=== PATIENT | male | born 1995 | race Caucasian/White ===

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

== ENCOUNTER 2019-07-13 19:24 | Emergency (ER) | payer OTHER ==
[~2019-07-13] VITALS: Ht 180.3 cm; Wt 75.0 kg
[2019-07-13] MEDS ORDERED: methylPREDNISolone SOD SUCC PF 125 MG/2 ML VIAL. IM ONE (19:45)
[2019-07-13] MEDS ORDERED: diphenhydrAMINE 50 MG/ML VIAL IM ONE (19:45)
--- NOTE | 2019-07-13 19:51 | PHYS DOC ---
Past Medical History Past Medical History: No Pertinent History, Anxiety Past Surgical History: No Surgical History Smoking Status: Never Smoker Alcohol Use: Occasionally Drug Use: None Adult General Chief Complaint Chief Complaint: ALLERGIC REACTION [facility] HPI Patient is a 24 year old male who presents with complaint of allergic reaction to azithromycin. Patient had been prescribed azithromycin yesterday and afterwards had developed a rash and swelling around his lips. Patient was seen for that earlier and had been given Benadryl and a Medrol Dosepak. Patient s tates that after initial doses, symptoms had improved with lip swelling decreasing but rash and lip swelling had returned. Patient did take another Benadryl about 30 minutes prior to arrival and states that it is just now starting to help with symptoms. He denies any shortness of breath or difficulty swallowing.[] Review of Systems Review of Systems Constitutional: Denies fever or chills [] Respiratory: Denies cough or shortness of breath [] Cardiovascular: No additional information not addressed in HPI [] Integument: Complains of urticarial rash[] Neurologic: Denies headache, focal weakness or sensory changes [] Current Medications Current Medications Current Medications Medications (Trade) Dose Ordered Sig/Enmanuel Start Time Stop Time Status Last Admin Dose Admin Diphenhydramine HCl (Benadryl) 25 mg 1X ONCE 07/13/19 19:45 07/13/19 19:46 DC 07/13/19 19:53 25 MG Methylprednisolone Sodium Succinate (SOLU-Medrol 125MG VIAL) 125 mg 1X ONCE 07/13/19 19:45 07/13/19 19:46 DC 07/13/19 19:54 125 MG Allergies Allergies Allergies Coded Allergies Type Severity Reaction Last Updated Verified azithromycin Allergy Unknown LIP SWELLING, HIVES 07/13/19 Yes Physical Exam Physical Exam Constitutional: Well developed, well nourished, no acute distress, non-toxic appearance. [] HENT: Normocephalic, atraumatic, bilateral external ears normal, oropharynx moist, no oral exudates, nose normal. [] Cardiovascular:Heart rate regular rhythm, no murmur [] Lungs & Thorax: Bilateral breath sounds clear to auscultation [] Skin: There is an urticarial rash that is present on the upper back bilaterally. [] Extremities: No tenderness, no cyanosis, no clubbing, ROM intact, no edema. [] Current Patient Data Vital Signs Vital Signs Date Time Temp Pulse Resp B/P (MAP) Pulse Ox O2 Delivery O2 Flow Rate FiO2 07/13/19 19:30 98.7 93 20 168/79 (108) 98 Room Air 98.7 EKG EKG [] Radiology/Procedures Radiology/Procedures [] Course & Med Decision Making Course & Med Decision Making Pertinent Labs and Imaging studies reviewed. (See chart for details) [] Dragon Disclaimer Dragon Disclaimer This electronic medical record was generated, in whole or in part, using a voice recognition dictation system. Departure Departure Impression: Primary Impression: [id number] Disposition: HOME, SELF-CARE Condition: STABLE Referrals: KEM ROGERS MD (PCP) Patient Instructions: Angioedema, Hives Additional Instructions: Continue taking medications already prescribed. Follow-up with your primary care provider in the next few days. Problem Qualifiers Primary Impression: [id number] Encounter type: initial encounter Qualified Codes: T78.3XXA - Angioneurotic edema, initial encounter LANDRY COLLINS Jr. DO Jul 13, 2019 19:51
[2019-07-13 21:03] VITALS: BP 132/61
[2019-07-13] MEDS ORDERED: LORazepam 0.5 MG TABLET PO ONE ×2 (22:00)
[2019-07-13] MEDS ORDERED: ONDANSETRON ODT 4 MG TAB.RAPDIS. PO ONE (22:00)
== END 2019-07-13 22:24 | disposition home or self-care (01) ==
LOC: ER 19:24
DX: T78.3XXA Angioneurotic edema, initial encounter (principal); R21 Rash and other nonspecific skin eruption; F41.9 Anxiety disorder, unspecified; Z88.1 Allergy status to other antibiotic agents
CPT/HCPCS: 96372; 99284; J1200; J2930; Q0162

== ENCOUNTER → 2020-03-11 | Outpatient (CLI) | payer OTHER ==
--- NOTE | 2020-03-11 16:10 | CARD ---
MR#: [id number] Date of Study: 03/11/2020 Ordering Physician: DIMAS SILVA, Referring Physician: DIMAS SILVA, Tech: Yaritza Stephenson APPROVED REPORT EXAM: Two-dimensional and M-mode echocardiogram with Doppler and color Doppler. Other Information Quality : AverageHR: 108bpm Technically limited study due to Rapid heart rate INDICATION Dyspnea 2D DIMENSIONS RVDd2.6 (2.9-3.5cm)Left Atrium(2D)2.4 (1.6-4.0cm) IVSd0.8 (0.7-1.1cm)Aortic Root(2D)2.7 (2.0-3.7cm) LVDd4.8 (3.9-5.9cm)LVOT Diameter1.9 (1.8-2.4cm) PWd0.9 (0.7-1.1cm)LVDs3.0 (2.5-4.0cm) FS (%) 38.2 %SV74.0 ml LVEF(%)68.3 (>50%) Aortic Valve AoV Peak Mohsen.134.2cm/sAoV VTI21.6cm AO Peak GR.7.2mmHgLVOT Peak Mohsen.125.4cm/s LVOT VTI 22.05cmAO Mean GR.4mmHg OLYA (VMAX)1.43tr1EQM (VTI)2.86cm2 Mitral Valve MV E Jdqifnsz37.4cm/sMV DECEL CQII470hl MV A Zwpmxlgi36.9cm/sMV GRW27hd E/A Ratio1.3MVA (PHT)3.79cm2 TDI E/Lateral E'4.4E/Medial E'4.6 Pulmonary Valve PV Peak Ndltxztj164.9cm/sPV Peak Grad.4mmHg Tricuspid Valve TR P. Gbfwwqef876cp/sRAP ADZHXHFK2ozYa TR Peak Gr.77rlJoAHRV19qlHh Pulmonary Vein S1 Gukcaxrr21.3cm/sD2 Fsqcygde05.7cm/s PVa rumphcpe05xqyo LEFT VENTRICLE The left ventricle is normal size. There is normal left ventricular wall thickness. The left ventricu lar systolic function is normal. The Ejection Fraction is 55%. There is normal LV segmental wall evelina on. The left ventricular diastolic function and filling is normal for age. RIGHT VENTRICLE The right ventricle is normal size. There is normal right ventricular wall thickness. The right ventr icular systolic function is normal. ATRIA The left atrium size is normal. The right atrium size is normal. The interatrial septum is intact wit h no evidence for an atrial septal defect or patent foramen ovale as noted on 2-D or Doppler imaging. AORTIC VALVE The aortic valve is normal in structure and function. Doppler and Color Flow revealed no significant aortic regurgitation. There is no significant aortic valvular stenosis. Calculated aortic valve area is 2.86 cm2 with maximum pressure gradient of 8 mmHg and mean pressure gradient of 4 mmHg. MITRAL VALVE The mitral valve is normal in structure and function. There is no evidence of mitral valve prolapse. There is no mitral valve stenosis. Doppler and Color Flow revealed no mitral valve regurgitation note d. TRICUSPID VALVE The tricuspid valve is normal in structure and function. Doppler and Color Flow revealed trace tricus pid regurgitation with an estimated PAP of 24 mmHg. There is no tricuspid valve stenosis. PULMONIC VALVE The pulmonic valve is not well visualized. Doppler and Color Flow revealed trace pulmonic valvular re gurgitation. GREAT VESSELS The aortic root is normal in size. The IVC is normal in size and collapses >50% with inspiration. PERICARDIAL EFFUSION There is no evidence of significant pericardial effusion. Critical Notification Critical Value: No <Conclusion> The left ventricular systolic function is normal. The Ejection Fraction is 55%. There is normal LV segmental wall motion. Trace tricuspid regurgitation with an estimated PAP of 24 mmHg. There is no evidence of significant pericardial effusion. Signed by : Gilson Gusman, Electronically Approved : 03/11/2020 16:10:33
== END ==
LOC: ECHO 12:30
PROVIDERS: ATTEND Internal Medicine Cardiovascular Disease
DX: R00.2 Palpitations (principal); R06.00 Dyspnea, unspecified
CPT/HCPCS: 93306

== ENCOUNTER 2020-06-15 02:45 | Emergency (ER) | payer OTHER ==
[~2020-06-15] VITALS: Ht 177.8 cm; Wt 81.8 kg
[2020-06-15] MEDS ORDERED: LORazepam 0.5 MG TABLET PO ONE (04:30)
--- NOTE | 2020-06-15 04:36 | ED.ADGEN ---
Past Medical History Past Medical History: No Pertinent History, Anxiety Past Surgical History: No Surgical History Smoking Status: Never Smoker Alcohol Use: Occasionally Drug Use: None General Adult EDM: Chief Complaint: DIZZY/LIGHT HEADED HPI: HPI: Patient is a 25 year old male coming in for symptoms of lightheadedness and feelings, passed out. Patient states his symptoms is anxiety. Patient states long history of anxiety has gotten significant worse over the past year in the setting of the COVID-19 pandemic. Patient states he was diagnosed with Covid in December and since has recovered but has not recovered his sense of taste and smell. He has been evaluated with an echo and a Holter monitor and ~both were normal except for some occasional PVCs or not related to his symptoms. History of vasovagal episodes after blood draws. States he has a stressful job time his symptoms at work. He occasionally has headaches with the symptoms. Also has a history of cataracts and has anxiety but is changing vision. Has tried Lexapro before but states it made him feel more tearful. Has not been using caffeine or any stimulants. Denies any other medical history. Denies any hot or cold intolerance, a fevers, weight loss or night sweats. Review of Systems: Review of Systems: All other systems within normal limits except for as noted in the HPI Current Medications: Current Medications Medications (Trade) Dose Ordered Sig/Enmanuel Start Time Stop Time Status Last Admin Dose Admin Lorazepam (Ativan) 0.25 mg 1X ONCE 06/15/20 04:30 06/15/20 04:31 DC 06/15/20 04:07 0.25 MG Allergies: Allergies: Allergies Coded Allergies Type Severity Reaction Last Updated Verified azithromycin Allergy Severe LIP SWELLING, HIVES 07/13/19 Yes Physical Exam: PE: Constitutional: Well developed, well nourished, no acute distress, non-toxic appearance. [] HENT: Normocephalic, atraumatic, bilateral external ears normal, nose normal. [] Eyes: PERRLA, conjunctiva normal, no discharge. [] Neck: No rigidity, supple, no stridor. No goiter or thyromegaly [] Cardiovascular: Tachycardic, regular rhythm, no murmurs or gallops, brisk cap refill [] Lungs & Thorax: Non labored symmetric respirations, no tachypnea or respiratory distress. Bilateral lungs clear to auscultation [] Abdomen: Soft, nondistended. Skin: Warm, dry, no erythema, no rash. [] Back: Unremarkable Extremities: No deformities, range of motion grossly intact, no lower extremity edema [] Neurologic: Alert and oriented X 3, no focal deficits noted. [] Psychologic: Affect normal, judgement normal, mood normal. [] Current Patient Data: Labs: Laboratory Tests Test 06/15/20 04:47 06/15/20 05:12 Urine Collection Type Unknown Urine Color Yellow Urine Clarity Clear Urine pH 7.5 (<5.0-8.0) Urine Specific [place] <=1.005 (1.000-1.030) Urine Protein Negative mg/dL (NEG-TRACE) Urine Glucose (UA) Negative mg/dL (NEG) Urine Ketones (Stick) Negative mg/dL (NEG) Urine Blood Negative (NEG) Urine Nitrite Negative (NEG) Urine Bilirubin Negative (NEG) Urine Urobilinogen Dipstick 0.2 mg/dL (0.2 mg/dL) Urine Leukocyte Esterase Negative (NEG) Urine RBC Occ /HPF (0-2) Urine WBC 0 /HPF (0-4) Urine Squamous Epithelial Cells Occ /LPF Urine Bacteria 0 /HPF (0-FEW) White Blood Count 11.5 x10^3/uL (4.0-11.0) H Red Blood Count 5.80 x10^6/uL (4.30-5.70) H Hemoglobin 16.9 g/dL (13.0-17.5) Hematocrit 48.8 % (39.0-53.0) Mean Corpuscular Volume 84 fL (79-100) Mean Corpuscular Hemoglobin 29 pg (25-35) Mean Corpuscular Hemoglobin Concent 35 g/dL (31-37) Red Cell Distribution Width 13.2 % (11.5-14.5) Platelet Count 236 x10^3/uL (140-400) Neutrophils (%) (Auto) 78 % (31-73) H Lymphocytes (%) (Auto) 16 % (24-48) L Monocytes (%) (Auto) 6 % (0-9) Eosinophils (%) (Auto) 0 % (0-3) Basophils (%) (Auto) 0 % (0-3) Neutrophils # (Auto) 9.0 x10^3/uL (1.8-7.7) H Lymphocytes # (Auto) 1.8 x10^3/uL (1.0-4.8) Monocytes # (Auto) 0.7 x10^3/uL (0.0-1.1) Eosinophils # (Auto) 0.0 x10^3/uL (0.0-0.7) Basophils # (Auto) 0.0 x10^3/uL (0.0-0.2) D-Dimer (Katerina) < 0.27 ug/mlFEU Sodium Level 140 mmol/L (136-145) Potassium Level 3.5 mmol/L (3.5-5.1) Chloride Level 100 mmol/L (98-107) Carbon Dioxide Level 28 mmol/L (21-32) Anion Gap 12 (6-14) Blood Urea Nitrogen 15 mg/dL (8-26) Creatinine 1.1 mg/dL (0.7-1.3) Estimated GFR (Cockcroft-Gault) 83.0 BUN/Creatinine Ratio 14 (6-20) Glucose Level 119 mg/dL (70-99) H Calcium Level 10.0 mg/dL (8.5-10.1) Phosphorus Level 3.0 mg/dL (2.6-4.7) Magnesium Level 2.3 mg/dL (1.8-2.4) Iron Level 69 ug/dL (65-175) Total Iron Binding Capacity 368 ug/dL (250-450) Iron Saturation 19 % (15-34) Total Bilirubin 0.6 mg/dL (0.2-1.0) Aspartate Amino Transferase (AST) 23 U/L (15-37) Alanine Aminotransferase (ALT) 36 U/L (16-63) Alkaline Phosphatase 108 U/L (46-116) Troponin I Quantitative < 0.017 ng/mL (0.000-0.055) Total Protein 8.7 g/dL (6.4-8.2) H Albumin 4.9 g/dL (3.4-5.0) Albumin/Globulin Ratio 1.3 (1.0-1.7) Thyroid Stimulating Hormone (TSH) 3.372 uIU/mL (0.358-3.74) Cortisol AM Sample 25.6 ug/dL (4.3-22.4) H Laboratory Tests 06/15/20 05:12 Laboratory Tests 06/15/20 05:12 Vital Signs: Vital Signs Date Time Temp Pulse Resp B/P (MAP) Pulse Ox O2 Delivery O2 Flow Rate FiO2 06/15/20 06:13 98 98 06/15/20 02:50 98.9 15 148/86 (106) Room Air 98.9 EKG: EKG: Sinus rhythm, heart rate was 60/min, incomplete right bundle, normal intervals, no ST elevation or depression, no ectopy [] Heart Score: Risk Factors: Risk Factors: DM, Current or recent (<one month) smoker, HTN, HLP, family history of CAD, obesity. Risk Scores: Score 0 - 3: 2.5% MACE over next 6 weeks - Discharge Home Score 4 - 6: 20.3% MACE over next 6 weeks - Admit for Clinical Observation Score 7 - 10: 72.7% MACE over next 6 weeks - Early Invasive Strategies Radiology/Procedures: Radiology/Procedures: [] Course & Med Decision Making: Course & Med Decision Making Pertinent Labs and Imaging studies reviewed. (See chart for details) Orthostatic vital signs show an increase in heart rate and blood pressure when going from laying to sitting to standing. slight elevation in cortisol. advised to follow up with primary care provider for further evaluation. But also could be due to patient's anxiety and stress about the situation. [] Dragon Disclaimer: Dragon Disclaimer: This electronic medical record was generated, in whole or in part, using a voice recognition dictation system. Departure Departure Impression: Primary Impression: Pre-syncope Additional Impression: Anxiety about health Disposition: 01 DC HOME SELF CARE/HOMELESS Condition: STABLE Referrals: KEM ROGERS MD (PCP) Patient Instructions: Anxiety and Panic Attacks Problem Qualifiers BENJY APONTE MD Jun 15, 2020 04:36
--- NOTE | 2020-06-15 04:40 | EKG ---
[facility] [address] [place] [address] Test Date: 2020-06-15 Test Time: 03:32:24 Pat Name: ELIAS SALEH Department: Room: Gender: M Cardiology Physician Assistant: : 1995 Requested By: BENJY APONTE Order Number: [id number] Reading MD: Gilson Gusman Measurements Intervals [place] Rate: 106 P: 56 RI: 144 QRS: 92 QRSD: 104 T: 44 QT: 322 QTc: 429 Interpretive Statements SINUS TACHYCARDIA LEFT ATRIAL ABNORMALITY RIGHTWARD AXIS INCOMPLETE RIGHT BUNDLE BRANCH BLOCK Electronically Signed On 06-23-2020 10:18:10 CELL INSPECTOR by Gilson Gusman
[2020-06-15 04:53] LABS: BILIRUBIN,URINE NEGATIVE (NEG); CLARITY,URINE CLEAR; COLOR,URINE YELLOW; NITRITE,URINE NEGATIVE (NEG); PH,URINE 7.5 (<5.0-8.0); PROTEIN,URINE NEGATIVE (NEG-TRACE); UROBILINOGEN,URINE 0.2 mg/dL (0.2 mg/dL)
[2020-06-15 04:59] LABS: BACTERIA,URINE 0 /HPF (0-FEW); RBC,URINE OCC /HPF (0-2); WBC,URINE 0 /HPF (0-4)
[2020-06-15 05:27] LABS: BASO % 0 % (0-3); EOS % 0 % (0-3); HEMATOCRIT 48.8 % (39.0-53.0); HEMOGLOBIN 16.9 g/dL (13.0-17.5); LYMPH # 1.8 x10^3/uL (1.0-4.8); LYMPH % 16 % (24-48); MEAN CORPUSCULAR HEMOGLOBIN 29 pg (25-35); MEAN CORPUSCULAR HGB CONC 35 g/dL (31-37); MEAN CORPUSCULAR VOLUME 84 fL (79-100); MONO # 0.7 x10^3/uL (0.0-1.1); MONO % 6 % (0-9); NEUT % 78 % (31-73); PLATELET COUNT 236 x10^3/uL (140-400); RED CELL DISTRIBUTION WIDTH 13.2 % (11.5-14.5); WHITE BLOOD COUNT 11.5 x10^3/uL (4.0-11.0)
[2020-06-15 05:43] LABS: CREATININE 1.1 mg/dL (0.7-1.3); POTASSIUM 3.5 mmol/L (3.5-5.1)
[2020-06-15 05:49] LABS: ALBUMIN 4.9 g/dL (3.4-5.0); ALBUMIN/GLOBULIN RATIO 1.3 (1.0-1.7); MAGNESIUM 2.3 mg/dL (1.8-2.4); TOTAL BILIRUBIN 0.6 mg/dL (0.2-1.0); TOTAL PROTEIN 8.7 g/dL (6.4-8.2)
[2020-06-15 06:13] VITALS: BP 142/68
== END 2020-06-15 06:23 | disposition home or self-care (01) ==
LOC: ER 02:45
DX: R55 Syncope and collapse (principal); F41.9 Anxiety disorder, unspecified; R42 Dizziness and giddiness; Z88.1 Allergy status to other antibiotic agents
CPT/HCPCS: 36415; 80053; 81001; 82533; 83540; 83550; 83735; 84100; 84443; 84484; 85025; 85379; 93005; 99285